=== PATIENT | female | born 2000 | race Caucasian/White ===

== ENCOUNTER 2021-03-15 18:20 | Emergency (ER) | payer BC, SELFPAY ==
[2021-03-15 18:22] VITALS: BP 128/65; PULSE 62; RESP 18; TEMP 36.8; O2SAT 100; BMI 20.9
--- NOTE | 2021-03-15 19:42 | EKG12_ITS ---
Test Reason : CP Blood Pressure : / mmHG Vent. Rate : 059 BPM Atrial Rate : 059 BPM P-R Int : 136 ms QRS Dur : 084 ms QT Int : 406 ms P-R-T Axes : 029 069 042 degrees QTc Int : 401 ms Sinus bradycardia with sinus arrhythmia Otherwise normal ECG Confirmed by BORA JULIO, DAGOBERTO ([id number]), society editor ELSIE RODAS ([id number]) on 03/19/2021 10:35:24 AM Referred By: CHIKA Confirmed By:DAGOBERTO SAHNI MD
--- NOTE | 2021-03-15 19:51 | RAD_ITS ---
STUDY: X-RAY CHEST REASON FOR EXAM: Female, 21 years old. Chest pain. TECHNIQUE: Single AP portable view of the chest. COMPARISON: None. FINDINGS: The lungs are clear and expanded. There is no demonstrated pleural abnormality. Normal size heart. Normal mediastinum and crispin. Normal visualized pulmonary arteries. Normal visualized aortic arch and descending thoracic aorta. Normal visualized thoracic spine. Normal visualized ribs, clavicles, and shoulders. There is no demonstrated abnormality of the visualized soft tissue structures of the upper abdomen. RAD/Chest 1 View (Portable) IMPRESSION: Normal x-ray examination of the chest. Electronically Signed: Kevin Liu DO at 20:24 EDT Tel [phone], Service support ,
[2021-03-15 20:02] LABS: Absolute Lymphocyte Count 2.47 X10^3/uL (0.83-4.51); Absolute Neutrophil Count 4.2 X10^3/uL (2.0-7.7); Basophil# 0.02 X10^3/uL; Basophil% 0.3 % (0-1); Eosinophil# 0.28 X10^3/uL; Eosinophils% 3.7 % (0-5); Hematocrit 37.2 % (37-47); Hemoglobin 11.3 g/dL (12.0-15.0); Lymphocyte # 2.47 X10^3/ul (0.83-4.51); Lymphocyte % 32.4 % (19-41); Mean Corp Hgb Conc 30.4 g/dL (32-36); Mean Corpuscular Hgb 25.4 pg (27.0-32.0); Mean Corpuscular Volume 83.6 fL (81-99); Mean Platelet Vol. 9.6 fl (6.2-12.0); Monocyte# 0.61 X10^3/uL; NRBC Flagged by Analyzer 0 % (0-5); Neutrophil # 4.22 X10^3/uL (2.7-7.7); Neutrophil % 55.3 % (47-70); Platelet Count 341 K/mm3 (150-450); RBC Distribution Width CV 14.1 % (11.6-14.6); RBC Distribution Width SD 43.1 fl (35.1-43.9); Red Blood Count 4.45 M/mm3 (4.2-5.4); White Blood Count 7.6 K/mm3 (4.4-11.0)
[2021-03-15 20:36] LABS: ALB/GLOB Ratio 1.4 RATIO (0.9-2.4); AST(SGOT) 13 U/L (15-37); Alanine Aminotransfer ALT/SGPT 17 U/L (13-56); Alkaline Phosphatase 43 U/L (45-117); Anion Gap 4 (5-15); BUN 6 mg/dL (7-18); BUN/Creat Ratio 9.2 RATIO (10-20); Calcium,Total 8.7 mg/dL (8.5-10.1); Chloride 110 mmol/L (98-107); Creatinine, Serum 0.65 mg/dL (0.55-1.02); EST Glomerular Filtration Rate 123 mL/min (>60); Est Glom Filt Rate - Afr Amer 149 mL/min (>60); Estimated Creatinine Clearance 128.52 ml/min; Globulin 2.9 g/dL (2.2-4.2); Glucose 80 mg/dL (74-106); Potassium 3.6 mmol/L (3.5-5.1); Protein, Total 6.9 g/dL (6.4-8.2); Sodium Level 139 mmol/L (136-145); Troponin-I HS 4 pg/mL (3.0-54.0)
[2021-03-15 20:42] VITALS: PULSE 53; RESP 18
[2021-03-15 20:44] LABS: D-Dimer Quantitative (DVT/PE) <= 0.27 FEU/ug/m (0.27-0.49)
--- NOTE | 2021-03-15 21:20 | ED.VIS.CHEST ---
HPI History of Present Illness Chief Complaint: Chest Pain Narrative Narrative: Patient presents with chest pain that is pleuritic that started earlier today when she woke. She has no fever or chills. She does not have a cough. She has no shortness of breath no lower extremity edema. She does have an implantable OCP and she has factor V Leiden. [facility] Medical History (Updated 03/15/21 @ 21:[address] Christopher Rivas MD) Anemia Home Medications ferrous sulfate [iron] 325 mg PO DAILY 03/15/21 [History Last Taken Unknown] Allergy/AdvReac Type Severity Reaction Status Date / Time No Known Allergies Allergy Verified 03/15/21 18:23 Surgical History (Updated 03/15/21 @ 18:45 by Annetta Jones) History of tonsillectomy and adenoidectomy Social History Smoking Status: Never smoker ROS ROS ED ROS Narrative Past medical history: Reviewed Medications: Reviewed Social history: Noncontributory Review of systems: All systems negative except as indicated General: No fever Eyes: No visual changes ENT: No upper airway congestion, normal voice Neck: No neck pain Cardiovascular: Chest pain as in HPI. No radiation. No back pain or tearing sensation Respiratory: No shortness of breath or cough Gastrointestinal: No abdominal pain, nausea vomiting or diarrhea Genitourinary: No dysuria Musculoskeletal: Denies myalgias no difficulty with ambulation Skin: No rash Neurological: No memory loss, confusion or any focal weakness Psych: No recent behavioral changes Hematologic: No easy bleeding or easy bruising EXAM Physical Exam Narrative Exam Narrative: Physical exam General: Well nourished, Well developed, No Acute Distress Head: Normocephalic, Atraumatic Eyes: Conjunctiva not pale ENT: Moist mucous membranes Neck: Supple, Nontender, No lymphadenopathy Cardiovascular: Regular rate, Regular rhythm Chest wall: Reproducible left-sided paraspinal chest wall pain. Respiratory: No distress, CTA bilaterally Abdomen: Soft, Nontender, Nondistended Back: Nontender, Normal Inspection. Negative for: CVA tenderness Extremities: Nontender, No edema Skin: Normal color, No rash Neurological: Alert, Normal Strength, Normal Sensation Psychological: Normal affect Const Vital Signs: 03/15/21 18:22 03/15/21 18:44 03/15/21 20:42 Temperature 98.2 F Temperature Source Temporal Pulse Rate 62 53 L Respiratory Rate 18 18 Respiratory Effort Normal Non-Labored Respiratory Pattern Normal Blood Pressure 128/65 H Blood Pressure Mean 86 Pulse Ox 100 Oxygen Delivery Method Room Air MDM MDM MDM Narrative Medical decision making narrative: Patient has a normal work-up with a negative D-dimer, she likely has costochondritis based on the physical and work-up. Should be discharged in stable condition. Lab Data Labs: Laboratory Results - last 24 hr 03/15/21 03/15/21 03/15/21 19:53 19:53 19:53 WBC 7.6 RBC 4.45 Hgb 11.3 L Hct 37.2 MCV 83.6 MCH 25.4 L MCHC 30.4 L RDW Std Deviation 43.1 RDW Coeff of Rina 14.1 Plt Count 341 MPV 9.6 Immature Gran % (Auto) 0.300 Neut % (Auto) 55.3 Lymph % (Auto) 32.4 [place] % (Auto) 8.0 Eos % (Auto) 3.7 Baso % (Auto) 0.3 Absolute Neuts (auto) 4.2 Absolute Lymphs (auto) 2.47 Nucleated RBC % 0 D-Dimer Quant (PE/DVT) <= 0.27 Sodium 139 Potassium 3.6 Chloride 110 H Carbon Dioxide 25.0 Anion Gap 4 L BUN 6 L Creatinine 0.65 Estim Creat Clear Calc 128.52 Est GFR (MDRD) Af Amer 149 Est GFR (MDRD) Non-Af 123 BUN/Creatinine Ratio 9.2 L Glucose 80 Calcium 8.7 Total Bilirubin 0.50 AST 13 L ALT 17 Alkaline Phosphatase 43 L Troponin I High Sens 4 Total Protein 6.9 Albumin 4.0 Globulin 2.9 Albumin/Globulin Ratio 1.4 Radiography Diagnostic Testing: Radiology Impression Chest X-Ray 03/15/21 19:51 IMPRESSION: Normal x-ray examination of the chest. Electronically Signed: Kevin Liu DO at 20:24 EDT Tel [phone], Service support , Discharge Plan Triage Chief Complaint: Chest Pain ED Provider: Christopher Rivas Dx/Rx/DC Orders Clinical Impression: Chest wall pain Instructions: Costochondritis Prescriptions: No Action ferrous sulfate [iron] 325 mg (65 mg iron) Tablet 325 mg PO DAILY RF: 0 Referrals: [facility] [Other] Disposition Disposition: Home, Self Care
[2021-03-15 21:29] VITALS: BP 123/69; PULSE 53; RESP 21; O2SAT 97
== END 2021-03-15 21:36 | disposition home or self-care (01) ==
PROVIDERS: Emergency Provider Emergency Medicine
DX: R07.89 Other chest pain (principal); D68.51 Activated protein C resistance; D64.9 Anemia, unspecified
CPT/HCPCS: 71045; 80053; 84484; 85025; 85379; 93005; 99282; A4216

== ENCOUNTER 2021-09-20 04:23 | Emergency (ER) | payer BC, SELFPAY ==
[2021-09-20 04:23] VITALS: BP 142/75; PULSE 78; RESP 18; TEMP 36.6; O2SAT 100; BMI 22.2
--- NOTE | 2021-09-20 04:30 | EDS_ITS ---
HPI History of Present Illness Chief Complaint: Abd Pain Detail of Chief Complaint: Left sided abdominal pain with dysuria Informant: patient Onset/Context/Timing Onset: Yesterday (Dysuria started yesterday.) Context: Sudden Onset Timing: Intermittent Quality: Pain Location: Over the left kidney region anteriorly Current Severity: Mild Maximum Severity: Moderate Worsened by: Nothing Relieved by: Nothing Associated Symptoms Associated Symptoms: Dysuria and hematuria Narrative Narrative: Patient is a 21-year-old G0, P0 female whose last normal menstrual period ended last week. She does have an implantable device to prevent . She denies vaginal discharge. She denies history of ovarian cysts or endometriosis. She denies history of renal ureterolithiasis. She denies fever, chills night sweats. She denies flank pain. The pain started 4 hours ago and has been constant. She states she is unable to fall asleep. She apparently [facility] and was told that there is blood in her urine. She gave the urine specimen 20 minutes ago. This may affect the accuracy of the UA obtained here. She denies fever, chills night sweats. She denies nausea or vomiting. She has no other complaints. Prior similar symptoms: No Recent Illness/Hospitalization: No PFSH PFSH Medical History (Updated 09/20/21 @ 05:[address] Charly Salgado MD) Anemia Medical History no medical history no medical history Home Medications ferrous sulfate [iron] 325 mg PO DAILY 03/15/21 [History Last Taken Unknown] phenazopyridine [Pyridium] 200 mg PO TID #10 tab 09/20/21 [Rx Last Taken Unknown] sulfamethoxazole-trimethoprim 1 tab PO BID #20 tablet 09/20/21 [Rx Last Taken Unknown] Allergy/AdvReac Type Severity Reaction Status Date / Time No Known Allergies Allergy Verified 09/20/21 04:27 Surgical History History of tonsillectomy and adenoidectomy Social History (Updated 09/20/21 @ 04:[address] Charly Salgado MD) household members: family and other details: Student at the [employer] Smoking Status: Never smoker substance use type: does not use ROS ROS ED Constitutional Constitutional ED: Denies chills, fever(s), subjective, sweats or weight loss Eyes Eyes: Denies blurry vision or change in vision ENT ENT ED: Denies ear pain, rhinorrhea or sore throat Respiratory/Chest Respiratory/Chest: Denies cough or dyspnea Gastrointestinal Gastrointestinal: Reports abdominal pain; Denies constipation, diarrhea, melena, nausea or vomiting Genitourinary Genitourinary ED: Reports dysuria, hematuria and urinary frequency Musculoskeletal Musculoskeletal: Denies arthralgias, back pain, myalgias or neck pain Integumentary Denies abscess, Abrasions or rash Hematologic/Lymphatic Hematologic/Lymphatic: Reports anemia; Denies easy bruising EXAM Physical Exam Const Vital Signs: 09/20/21 04:23 Temperature 97.9 F Temperature Source Temporal Pulse Rate 78 Respiratory Rate 18 Blood Pressure 142/75 H Blood Pressure Mean 97 Pulse Ox 100 Positive well nourished and well developed General Appearance ED: well developed and NAD; Negative for cyanotic, diaphoretic or pallor HEENT Reports moist mucous membranes HEENT Narrative: Ears normal. Nares patent. Negative for trauma or tenderness Eyes PERRL and EOMs intact bilaterally General Eye ED: Negative for pale conjunctiva or scleral icterus Neck No supple Resp normal respiratory effort and clear to auscultation bilaterally Effort and Inspection: Negative for pain with movement Cardio regular rate, regular rhythm, S1 normal heart sound, S2 normal heart sound and no murmurs GI normal to inspection, nondistended, normoactive bowel sounds and non-distended; Negative for non-tender Palpation: soft and tender suprapubic (And over the left kidney) Back/Spine no CVA tenderness Thoracic Spine / Upper Back: Negative for thoracic spinal tenderness or paraspinal muscle tenderness Extremity normal to inspection General Extremety ED: Negative for edema or tenderness General Extremity: Negative for edema Neuro oriented x3 and CN's II-XII intact bilaterally Sensorium / Orientation: alert Psych mental status grossly normal Skin no rashes or lesions noted and no wounds General Skin Exam: Negative for jaundice or pallor MDM MDM MDM Narrative Medical decision making narrative: Patient has symptoms of a urinary tract infection. She may have subclinical pyelonephritis. Will obtain urine at this point. Since she is not writhing in pain and has no other symptoms IV was not established nor was any blood work obtained. Lab Data Attestation: I reviewed the patient's lab results. Lab results narrative: Urine is consistent with infection. Since there is concern patient has pyelonephritis culture was sent and she was treated with Bactrim for 10 days. She also received Pyridium for her discomfort. Labs: Laboratory Results - last 24 hr 09/20/21 04:58 Urine Color Yellow Urine Clarity Cloudy Urine pH 6.5 Ur Specific [place] 1.015 Urine Protein 500 H Urine Glucose (UA) Normal Urine Ketones 50 H Urine Occult Blood 250 H Urine Nitrite Positive H Urine Bilirubin 3 H Urine Urobilinogen 4 H Ur Leukocyte Esterase 500 H Urine RBC > 100 SEEN Urine WBC >100 SEEN Ur Squamous Epith Cells 0-5 SEEN Urine Bacteria 2+ Urine Mucus 0 SEEN Discharge Plan Triage Chief Complaint: Abd Pain ED Provider: Charly Salgado Dx/Rx/DC Orders Clinical Impression: Acute bacterial pyelonephritis Instructions: ED Pyelonephritis, Female (Adult) Prescriptions: New phenazopyridine [Pyridium] 200 MG tablet 200 mg PO TID Qty: 10 RF: 0 sulfamethoxazole-trimethoprim [sulfamethoxazole-trimethoprim] 1 TABLET tablet 1 tab PO BID Qty: 20 RF: 0 No Action ferrous sulfate [iron] 325 mg (65 mg iron) Tablet 325 mg PO DAILY RF: 0 Primary Care Provider: Care Physician,No Primary Referrals: [facility] [GROUP OF PHYSICIANS] - 3-5 Days Care Physician,No Primary [Primary Care Provider] - Disposition Disposition: Home, Self Care
[2021-09-20 05:01] LABS: Mucous, Urine 0 SEEN /hpf (<or=2+)
[2021-09-20 05:04] LABS: Color, Urine Yellow (Yellow); Glucose, Dipstick Normal (Normal); Ketone-Dipstick 50 mg/dl (Negative); Leukocyte Esterase-Dipstick 500 /ul (Negative); Nitrite-Dipstick Positive (Negative); Occult Blood-Urine 250 /ul (Negative); Protein-Dipstick 500 mg/dl (Negative); Specific Gravity, Urine 1.015 (1.002-1.030); Urine Bilirubin Dipstick 3 mg/dL (Negative); Urine Clarity Cloudy (Clear); Urine Urobilinogen 4 mg/dl (Normal); Urine pH 6.5 (5.0 - 8.0)
[2021-09-20 05:09] LABS: Red Blood Cells-Urine > 100 SEEN /hpf (0-5); White Blood Cells >100 SEEN /hpf (0-5)
[2021-09-20 05:10] LABS: Bacteria 2+ /hpf (None Seen); Squamous Epithelial Cells - UA 0-5 SEEN /hpf (5-10)
[2021-09-20] MEDS: Smz/Tmp Ds Tablet 1 TABLET PO (05:20)
[2021-09-20] MEDS: Phenazopyridine 95 MG Tablet 190 MG PO (05:22)
[2021-09-20 05:25] VITALS: BP 136/70; PULSE 78; RESP 18; O2SAT 96
== END 2021-09-20 05:25 | disposition home or self-care (01) ==
PROVIDERS: Emergency Provider Emergency Medicine; Visit Provider Emergency Medicine
DX: N10 Acute pyelonephritis (principal)
CPT/HCPCS: 81001; 87086; 87088; 87186; 99283

== ENCOUNTER 2023-11-16 00:34 | Emergency (ER) | payer OTHER, SELFPAY ==
[2023-11-16 00:36] VITALS: BP 143/95; PULSE 79; RESP 16; TEMP 36.6; O2SAT 99; BMI 24.1
--- NOTE | 2023-11-16 00:55 | EDS_ITS ---
HPI History of Present Illness Chief Complaint: General Illness Informant: patient and friend Narrative Narrative: Patient is a 23-year-old female with past medical history of depression currently on Paxil. She also has insomnia and takes trazodone to sleep. Chana sanchez states she was at a [employer] this evening and had 4 seltzers and then snorted a white powder from another person and she was told it was ketamine. She states that shortly after snorting the white powder she began to feel nauseous and had bouts of vomiting and felt lightheaded and dizzy. She states that she took the powder roughly around 10:30 PM/2 hours ago and symptoms have been slowly improving spontaneously. [facility] Medical History Anemia Home Medications paroxetine HCl 10 mg tablet 10 mg PO DAILY 11/16/23 [History Last Taken Unknown] Allergy/AdvReac Type Severity Reaction Status Date / Time No Known Allergies Allergy Verified 09/20/21 04:27 Surgical History History of tonsillectomy and adenoidectomy Social History (Updated 09/20/21 @ 04:[address] Charly Salgado MD) household members: family and other details: Student at the [employer] and the [employer] Smoking Status: Never smoker substance use type: does not use ROS ROS ED Constitutional Constitutional ED: Denies chills or fever(s) Eyes Eyes: Denies change in vision or diplopia ENT ENT ED: Denies sore throat Cardiovascular Cardiovascular: Denies chest pain Respiratory/Chest Respiratory/Chest: Denies cough or dyspnea Gastrointestinal Gastrointestinal: Reports nausea and vomiting; Denies abdominal pain or diarrhea Genitourinary Genitourinary ED: Denies dysuria Musculoskeletal Musculoskeletal: Denies myalgias Integumentary Denies rash Neurologic Neurologic: Reports other Details: Positive dizziness ; Denies headache(s) Psychiatric Psychiatric: Reports depression; Denies suicidal ideation or suicidal thoughts Hematologic/Lymphatic Hematologic/Lymphatic: Denies easy bleeding or easy bruising EXAM Physical Exam Const Vital Signs: 11/16/23 00:36 11/16/23 00:39 Temperature 97.9 F Temperature Source Oral Pulse Rate 79 Respiratory Rate 16 Respiratory Effort Normal Respiratory Pattern Normal Blood Pressure 143/95 H Blood Pressure Mean 111 Pulse Ox 99 Oxygen Delivery Method Room Air Positive well nourished and well developed General Appearance ED: well developed; Negative for pallor HEENT HEENT Narrative: Normocephalic atraumatic Eyes PERRL and EOMs intact bilaterally General Eye ED: Negative for scleral icterus Neck supple Neck Narrative: No nuchal rigidity or meningeal signs Resp normal respiratory effort and clear to auscultation bilaterally Resp Narrative: No nasal flaring retractions tachypnea or accessory muscle use Cardio regular rate and regular rhythm Rate: other Other Details: Heart is regular rate and rhythm without murmurs rubs or gallops Radial and carotid pulses are equal and symmetric GI normal to inspection, nondistended, normoactive bowel sounds, non-tender, non- distended and no masses Auscultation: normoactive bowel sounds Palpation: soft Extremity normal to inspection Neuro oriented x3, CN's II-XII intact bilaterally and no sensory deficits noted Neuro Narrative: Cranial nerves II through XII are grossly intact there are no focal neurologic deficits No pronator drift no dysmetria no truncal ataxia No nystagmus noted No leadpipe rigidity present No tremors noted either Sensorium / Orientation: alert Motor Exam: strength 5/5 throughout Psych mental status grossly normal Skin no rashes or lesions noted, no wounds and skin turgor normal General Skin Exam: Negative for jaundice or pallor MDM MDM MDM Narrative Medical decision making narrative: Patient presented to the ER mildly hypertensive otherwise with stable vitals. She reported doing an unknown substance and then having an adverse reaction. She reported that she was told it was ketamine. She did this 2 hours ago approximately and since then symptoms are spontaneously improving. She has no signs of neurologic involvement. She has no signs of serotonin syndrome. She is not in respiratory distress or showing signs of airway compromise. At this time as symptoms are spontaneous improving and vitals are stable and neurologic exam is normal I do feel patient most likely ingested ketamine and had an a dverse reaction. However as vitals are stable and neurologic exam is normal and she has no signs of respiratory distress I do not feel we need to watch the patient or provide any type of supportive care and she is safe for discharge History & Record Review Discussion w/independent historian: Patient and Friend Discharge Plan Triage Chief Complaint: General Illness ED Provider: Pola Jacob Dx/Rx/DC Orders Clinical Impression: Ketamine adverse reaction, Depression Instructions: ED Drug Reaction, Other Prescriptions: No Action paroxetine HCl 10 mg tablet 10 mg PO DAILY Primary Care Provider: Care Physician,No Primary Referrals: Care Physician,No Primary [Primary Care Provider] - Activity Restrictions/Additional Instructions: Please refrain from taking your trazodone this evening but you may continue your Paxil in the morning as directed by your doctor. Your history and exam is consistent with an accidental ketamine overdose and adverse reaction. However as time is passed your body has metabolized the drug and symptoms are improving. If you have any further concerns or worsening symptoms please return to the ER for repeat evaluation Disposition Disposition: Home, Self Care
[2023-11-16 00:59] VITALS: BP 129/80; PULSE 78; RESP 16; TEMP 36.6; O2SAT 99
== END 2023-11-16 01:15 | disposition home or self-care (01) ==
LOC: ED 01:15
PROVIDERS: Emergency Provider Emergency Medicine; Visit Provider Emergency Medicine
DX: R11.2 Nausea with vomiting, unspecified (principal); T41.295A Adverse effect of other general anesthetics, initial encounter; G47.00 Insomnia, unspecified; F32.A Depression, unspecified; Z79.899 Other long term (current) drug therapy; R42 Dizziness and giddiness
CPT/HCPCS: 99282